=== PATIENT | female | born 2005 ===

== ENCOUNTER 2024-09-27 22:01 | Emergency (ER) | payer SELFPAY ==
[2024-09-27 22:02] VITALS: BP 156/88; PULSE 102; RESP 18; TEMP 36.6; O2SAT 100
--- OUTSIDE RECORDS SUMMARY | 2024-09-27 22:18 | XMS_ITS | Continuity of Care Document ---
Author Organization [facility] Address [address] [place] [address] Phone Care Team Providers Care Shuttle Route Vehicle Operator Name Role Phone Mai Rushing Unavailable Unavailable Allergies, Adverse Reactions, Alerts Substance Reaction Status Criticality No Known Allergies Active No Inform ation Medications Medication Instructions Dosage Effective Dates (start - stop) Status Comments famotidine 40 mg tablet take 1 tablet by oral route every day at bedtime 40 MG - Active ketorolac 10 mg tablet take 1 tablet by oral route every 6 hours as needed for up to 5 days total use as needed for Pain 10 MG - Active hyoscyamine 0.125 mg sublingual tablet as needed - Active citalopram 20 mg tablet take 1 1/2 tablets (30mg) by oral route every day - Active Adderall 10 mg tablet take 1 tablet by oral route every day before breakfast 10 MG - Active Jaimiess 0.15 mg-30 mcg (84)/10 mcg(7) tablets,3 month dose pack take 1 tablet by oral route every day 1.00 tablet - Active Procedures Procedure Date OFFICE [id number] BODY MASS INDEX DOCD SYST BP LT 130 MM HG DIAST BP 80-89 MM HG ECHO EXAM OF ABDOMEN, LIMITED (SINGLE OR TYREE, QUADRANT, FOLLOW-UP) C-REACTIVE PROTEIN (CRP) CBC, INC PLATELETS AND DIFFERENTIAL COMPREHEN METABOLIC PANEL CMP ROUTINE VENIPUNCTURE OFFICE [id number] BODY MASS INDEX DOCD SYST BP LT 130 MM HG DIAST BP 80-89 MM HG Advance Directives Directive Yes / No Effective Date File Name No Information Encounters Encounter Description Practice Location Reason(s) For Visit Diagnoses Date Provider Providers Copied on Encounter [facility], [address], [place], [place], [id number] , tel: [phone] [facility] No Information 4 Gilles Oneill. [address] [place] [address], [address], [id number] , [place]. tel: [phone] OFFICE [id number] [facility], [address], [place], [place], [id number] , tel: [phone] [facility] Follow Up of RUQ pain (chief complaint) Follow Up of Loose stools (chief complaint) Altered bowel habitsGastroesophagea l reflux disease without esophagitisRUQ abdominal pain 4 Gilles Oneill. [address] [place] [address], [address], [id number] , [place]. tel: [phone] Referring Provider: Higinio Erwin, [address] [place] [address] Office [facility] [address], [place], [address]. tel:[phone] [facility], [address], [place], [place], [address] , tel: [phone] [facility] RUQ abdominal pain 4 Gilles Oneill. [facility] [place] [facility], [address], [id number] , [place]. tel: [phone] [facility], [address], [place], [place], [address] , tel: [phone] [facility] No Information 4 Caterina Ureña. [address] , [place], [place], [address] , [place]. tel: [phone] Referring Provider: Mai Campoverde, [address], [address] . tel:[phone] OFFICE [id number] MP-MED [facility], [address], [place], [place], [id number] , tel:[phone] [facility] RUQ pain (chief complaint) RUQ pain Campoverde Mai. [address], [address], [id number] , [place]. tel:[phone] Referring Provider: Higinio Erwin, [address] [place] [address] [facility] [address], [place], [address]. tel:[phone] [facility], [address], [place], [place], [address] , tel:[phone] [facility] No Information Campoverde Mai. [address], [address], [id number] , . tel:[phone] Family History Family Member Type Diagnosis Age At Onset Father Problem Colon polyps Problem Family history of Diabetes m ellitus Paternal grandmother Problem Heart Disease Paternal grandfather Problem Colon polyps Payers Payer name Insurance type Covered alliance party ID Authordenisea catracho(s) [facility] [id number] Social History Type Description Quantity Date Captured Comments Alcohol Use Details Unknown Caffeine Use Details Unknown Tobacco Use Status No Information Smoking Status No Information Sex Female Sexual Orientation Straight or heterosexual Gender Identity Female Chief Complaint And Reason For Visit No Information Reason For Referral Reason For Referral No Information Plan Of Treatment Date Type Action Status Referral Ordered: HIDA scan with administration of cholecystokinin (CCK) and determination of gallbladder ejection fraction ordered Referral Ordered: US RUQ abdomen ordered History Of Present Illness Encounter Date Complaint History Of Prese nt Illness Comments: She is on Omeprazole 40mg 2-3 times per week. Takes Pepcid also intermittently. They both work and she takes these usually at night. US on 12/22/23 was WNL. HIDA was ordered but patient did not get this done. She has RUQ pain after a large meal up to 4 times per week. Lasts approximately an hour. Describes as squeezing, achy pain. Has mild nausea, no vomiting. Reports her diet consists of fried hash browns that made her nauseous. Had pasta salad and an apple and was fine. If she eats meat or eggs, she will have pain. Had EGD in 2019. Takes Hyoscyamine 1-2 times per week for spasms. Follow Up of Loose stools Comments: Report s has had loose stools since she has been approx 9. Has mild bloating and flatulence. No blood in her stool. Happens at night after dinner. No night time stools. Follow Up of RUQ pain RUQ pain Comments: Report s went to 1 month ago with RUQ pain. Can occur at night when sleeping. Eats fast food and has pain an hour after eating. Happens daily, all along her right side radiates into her back and shoulder. Nausea more than vomiting. Had diarrhea but now improved. No blood in her stool. Had EGD in 2019 for GERD symptoms. Doesn't take Pepcid but thinks she should because she has acid reflux constantly. Has belching. Functional Status Date Functional Assessmen t No Information Instructions Date Instruction Additional Infor celine Having loose stools 1-2 times per week. She has had irregular stools for the past 9 years. No blood in her stool. Negative duodenal biopsies for celiac. Labs WNL. Likely IBS. Check calprotectin, fecal fat. Continue Hyoscyamine as needed. Limit daily. Follow up in 3-4 months. Related to Altered bowel habits as above Related to Gastr oesophageal reflux disease without esophagitis US negative. Having intermittent discomfort in her RUQ. Was supposed to have HIDA scan but didn't have time due to work. Having intermittent achy pain that radiates across her epigastric area. Has a hx of GERD with EGD in 2019. Her discomfort sounds more like uncontrolled acid reflux than gallbladder. Start Famotidine 40mg at HS. Follow low acid diet and practice lifestyle modifications. Related to RUQ abdominal pain Disease prevention Reports a 1 month hx of right sided abdominal pain associated with nausea, mild loose stools, acid reflux. Occurs after eating and randomly day and night. Has a hx of acid reflux, and has been evaluated in 2019 with EGD. No imaging or labs done in UC, given reglan and hyoscyamine. Took short term with little relief. Consider biliary dyskinesia however also consider uncontrolled acid reflux. Will start with labs and imaging while we get records and trial PPI. Labs today. Schedule US of gallbladder. If negative consider HIDA scan. Start Omeprazole 40mg daily. Low fat, bland low acid diet. Records from [facility] for EGD/path from 2019. Follow up in 8 weeks. Related to RUQ pain Disease prevention Assessments Type Assessment Date No Information Patient Care Teams Name Effective Dates (start - stop) Status Members No Information
--- OUTSIDE RECORDS SUMMARY | 2024-09-27 22:18 | XMS_ITS | Continuity of Care Document ---
Author Organization [facility] Address [address] [place] [address] Phone Care Team Providers Care Welding Specialist Name Role Phone Kleber Del Rio MD Unavailable Unavailable Allergies, Adverse Reactions, Alerts Substance Reaction Status Criticality No Known Allergies Active No Inform ation Medications Medication Instructions Dosage Effective Dates (start - stop) Status Comments CONCERTA (unknown strength) Not Available - Active CITALOPRAM HBR (unknown strength) Not Available - Active Procedures Procedure Date OFFICE/OUTPATIENT VISIT EST OFFICE/OUTPATIENT VISIT EST OFFICE/OUTPATIENT VISIT EST POSTOP FOLLOW-UP VISIT OFFICE/OUTPATIENT VISIT EST OFFICE/OUTPATIENT VISIT NEW Advance Directives Directive Yes / No Effective Date File Name No Information Encounters Encounter Description Practice Location Reason(s) For Visit Diagnoses Date Provider Providers Copied on Encounter OFFICE/OUTPAT IENT VISIT EST [facility] , [address], [place], [address], [place] tel:[phone] [facility] Unspecified dislocation of left patella, subsequent encounter 9 Eliane Shahid. [address], [place], [place], [id number]. tel:[phone] OFFICE/OUTPAT IENT VISIT EST [facility] , [address], [place], [address], [place] tel:[phone] [facility] Unspecified dislocation of left patella, subsequent encounter 9 Eliane Shahid. [address], [place], [place], [address]. tel:[phone] OFFICE/OUTPAT IENT VISIT EST [facility] , [address] [address], [place], [address], [place] tel:[phone] [facility] Unspecified dislocation of left patella, subsequent encounter 9 Eliane Shahid. [address], [place], [place], [id number]. tel:[phone] [facility] , [address], [place], [address], [place] tel:[phone] [facility] Unspecified dislocation of left patella, subsequent encounter 8 Mj Cee. [address], [place], [place], [address]. tel:[phone] OFFICE/OUTPAT IENT VISIT EST [facility] , [address] [address], [place], [address], [place] tel:[phone] [facility] Dislocation of left patella, initial encounter 8 Eliane Shahid. [address], [place], [place], [address]. tel:[phone] OFFICE/OUTPAT IENT VISIT NEW [facility] , [address], [place], [address], [place] tel:[phone] [facility] Coccydynia 8 Racheal Shahid. [address], [place], [place], [address]. tel:[phone] Referring Provider: Higinio Lin [address], [place], [address]. tel:[phone] Family History Family Member Type Diagnosis Age At Onset Sister Problem (finding) attention deficit hyper activity disorder Father Problem (finding) hypertension Mother Problem (finding) hypertension Brother Problem (finding) attention deficit hyper activity disorder Mother Problem (finding) Heart Arrhythmia Payers Payer name Insurance type Covered constitution party ID Authoriza tion(s) [facility] Choice Plus E2 OT [id number] Social History Type Description Quantity Date Captured Comments Alcohol Use Details No Caffeine Use Details Unknown Tobacco Use Status Never smoked tobacco 2018 Smoking Status Never smoker Sex Female Chief Complaint And Reason For Visit No Information Reason For Referral Reason For Referral No Information Plan Of Treatment Date Type Action Status Referral Ordered: RADEX KNE 3 VIEWS LT knee ordered History Of Present Illness Encounter Date Complaint History Of Prese nt Illness No Information Functional Status Date Functional Assessmen t No Information Instructions Date Instruction Additional Infor mation Report increased renan n, swelling, numbness or discoloration. Related to Unspecified dislocation of left patella, subsequent encounter Use as directed Related to Unspe cified dislocation of left patella, subsequent encounter Report increased renan n, swelling, numbness or discoloration. Related to Unspecified dislocation of left patella, subsequent encounter Take medication as directed. Rel ated to Unspecified dislocation of left patella, subsequent encounter Rest, ice and elevate. Related t o Dislocation of left patella, initial encounter Discussed treatment options Rela brittney to Dislocation of left patella, initial encounter Discussed treatment options Rela brittney to Coccydynia Assessments Type Assessment Date assessment Unspecified dislocation of left patella, subsequent encounter Patient Care Teams Name Effective Dates (start - stop) Status Members No Information
== END 2024-09-27 23:12 | disposition left against medical advice (07) ==
LOC: ANHED 22:17
DX: N93.9 Abnormal uterine and vaginal bleeding, unspecified (principal)
CPT/HCPCS: 99199

== ENCOUNTER 2024-12-11 22:38 | Emergency (ER) | payer OTHER, SELFPAY ==
--- NOTE | ~2024-12-11 | XR_ITS ---
XR chest 2V Ordering provider: Catarino Julian MD History: 19 years Female with . chest pain . Comparison: None. FINDINGS: MEDIASTINUM: The cardiac silhouette is not enlarged. LUNGS: No infiltrates, effusions or pneumothorax. OTHER: No free air under the diaphragm. IMPRESSION: No acute cardiopulmonary pathology. Reviewed, dictated and finalized at location A.
--- NOTE | 2024-12-11 22:43 | ECG_ITS ---
Test Date: 2024-12-11 22:47:09 Measurements Intervals [place] Rate: 82 P: 26 CT: 143 QRS: 68 QRSD: 98 T: -14 QT: 364 QTc: 427 Interpretive Statements SINUS RHYTHM INCOMPLETE RIGHT BUNDLE BRANCH BLOCK [90+ ms QRS DURATION, TERMINAL R IN V1/V2, 40+ ms S IN I/aVL/V4/V5/V6] MODERATE T-WAVE ABNORMALITY, CONSIDER ANTERIOR ISCHEMIA [-0.1+ mV T-WAVE IN V3/V4] No previous ECG available for comparison Electronically Signed On 12-13-2024 18:54:42 CDT by Jasbir Garcia
[2024-12-11 22:55] VITALS: BP 134/96; PULSE 88; RESP 18; TEMP 36.6; O2SAT 100
[2024-12-11 23:01] LABS: Basophils Absolute Auto 0.1 K/mm3 (0.0-0.1); Basophils Percent Auto 0.6 % (0.2-1.2); Eosinophils Absolute Auto 0.2 K/mm3 (0-0.3); Eosinophils Percent Auto 2.4 % (0-4.4); Hematocrit 45.3 % (37.0-47.0); Hemoglobin 14.6 g/dL (12.0-15.0); Immature Granulocyte Absolute 0.01 K/mm3 (0.00-0.031); Immature Granulocyte Percent A 0.1 % (0-0.5); Lymphocytes Percent Auto 37.6 % (18.3-44.2); Mean Corpuscular HGB Conc 32.2 g/dl (32-36); Mean Corpuscular Hemoglobin 28.8 pg (26-34); Mean Corpuscular Volume 89.3 fl (80-100); Mean Platelet Volume 9.2 fl (7.4-10.4); Monocytes Absolute Auto 0.6 K/mm3 (0.1-0.6); Monocytes Percent Auto 6.6 % (2.6-8.5); Neutrophils Absolute Auto 4.6 K/mm3 (1.3-6.7); Neutrophils Percent Auto 52.7 % (45.5-73.1); Platelet Count Result 471 k/mm3 (150-375); Red Blood Count 5.07 M/mm3 (4.2-5.4); Red Cell Distribution Width 13.2 % (11.5-14.5); White Blood Count 8.8 K/mm3 (4.5-10.0)
[2024-12-11 23:15] LABS: Partial Thromboplastin Time 30.7 Seconds (22.3-36.8); Prothrombin Time 13.1 Seconds (11.1-14.7)
[2024-12-11 23:29] LABS: Alanine Aminotransferase 82 U/L (6-35); Albumin Level 5.3 g/dL (3.5-5.1); Alkaline Phosphatase 87 U/L (38-126); Anion Gap 16 mmol/L (4-12); Aspartate Amino Transferase 48 U/L (14-36); Bilirubin,Total 0.5 mg/dL (0.2-1.3); Blood Urea Nitrogen 8 mg/dL (7-17); Calcium 9.9 mg/dL (8.4-10.2); Carbon Dioxide 23 mmol/L (22-30); Chloride 103 mmol/L (98-107); Estimated CRCL calculation 135 ml/min; Estimated Glomerular Filt Rate > 60; Glucose 100 mg/dL (65-110); Lipase 120 U/L (23-300); Potassium 3.9 mmol/L (3.4-5.0); Sodium 142 mmol/L (137-145)
[2024-12-11 23:37] VITALS: BP 122/76; PULSE 77; RESP 13; O2SAT 98
[2024-12-11 23:39] VITALS: O2SAT 100
[2024-12-11 23:39] LABS: Troponin I < 0.012 ng/mL (0.000-0.034)
--- NOTE | 2024-12-11 23:48 | ED.CHESTPAIN ---
HPI - Chest Pain General Chief Complaint: Chest Pain Stated Complaint: chest pain 2 hrs left sided back and arm Time Seen by Provider: 12/11/24 23:34 Source: patient Mode of arrival: ambulatory Limitations: no limitations History of Present Illness HPI narrative: This is a 19-year-old female that presents to the emergency department for left-sided chest pain. Ongoing over the last couple of hours. The pain is sharp in nature, worse with breathing. Radiates to her back. Denies shortness of breath. Related Data Allergies Allergy/AdvReac Type Severity Reaction Status Date / Time No Known Allergies Allergy Verified 12/12/24 00:29 Review of Systems Review of Systems: CONSTITUTIONAL: Denies fever CARDIOVASCULAR: Reports chest pain RESPIRATORY: Denies dyspnea. GASTROINTESTINAL: Denies abdominal pain, nausea, vomiting All systems reviewed & are unremarkable except as noted in HPI and below PMFSH Past Medical History Medical History (Updated 12/12/24 @ 01:18 by Sari Mares PA-C) History of anxiety Social History Social History (Updated 12/12/24 @ 01:18 by Sari Mares PA-C) Smoking status: Current some day smoker Tobacco type: e-cigarettes/vaping Exam Narrative: GENERAL: Well-appearing, well-nourished, and in no acute distress. HEAD: Normocephalic, atraumatic. EYES: EOMI. CHEST: Clear to auscultation. No respiratory distress. No wheezes rales or rhonchi HEART: Regular rate and rhythm. No murmur heard. Normal peripheral pulses. EXTREMITIES: Normal range of motion. No edema. SKIN: Warm, dry, no rash. NEURO: No focal deficits. Alert and oriented x3. PSYCH: Normal mood and affect Course Course Emergency Course: Patient updated on her workup and agrees with plan of care Vital Signs Vital signs: Vital Signs Temperature 97.8 F 12/11/24 22:55 Pulse Rate 88 12/11/24 22:55 Respiratory Rate 18 12/11/24 22:55 Blood Pressure 134/96 H 12/11/24 22:55 Pulse Oximetry 100 12/11/24 22:55 Oxygen Delivery Room Air 12/11/24 22:55 Temperature 97.8 F 12/11/24 22:55 Pulse Rate 77 12/11/24 23:37 Respiratory Rate 13 12/11/24 23:37 Blood Pressure 122/76 12/11/24 23:37 Pulse Oximetry 100 12/11/24 23:39 Oxygen Delivery Room Air 12/11/24 23:39 MDM - Chest Pain MDM Narrative Medical decision making narrative: Patient presents the emergency department for chest pain. Her vitals are stable. CBC without concerning findings. Metabolic panel with mild transaminitis. Lipase is normal. EKG without acute ST changes and her baseline troponin is negative. D-dimer is not elevated. Her heart score is 1. Chest x-ray without acute cardiopulmonary abnormality. Patient updated on her workup agrees with plan of care. She is to follow up with primary provider. She was given warnings to return the ER Differential Diagnosis Differential diagnosis: Likely stable angina, atypical chest pain, costochondritis, chest pain and other (Muscle strain, anxiety, pneumonia) Lab Data Attestation: I reviewed the patient's lab results. 12/11/24 22:53 12/11/24 22:53 Labs: Lab Results 12/11/24 Range/Units 22:53 WBC 8.8 (4.5-10.0) K/mm3 RBC 5.07 (4.2-5.4) M/mm3 Hgb 14.6 (12.0-15.0) g/dL Hct 45.3 (37.0-47.0) % MCV 89.3 (80-100) fl MCH 28.8 (26-34) pg MCHC 32.2 (32-36) g/dl RDW 13.2 (11.5-14.5) % Plt Count 471 H (150-375) k/mm3 MPV 9.2 (7.4-10.4) fl Immature Gran % (Auto) 0.1 (0-0.5) % Neut % (Auto) 52.7 (45.5-73.1) % Lymph % (Auto) 37.6 (18.3-44.2) % Norton % (Auto) 6.6 (2.6-8.5) % Eos % (Auto) 2.4 (0-4.4) % Baso % (Auto) 0.6 (0.2-1.2) % Lymph # (Auto) 3.30 H (0.9-3.2) K/mm3 Norton # (Auto) 0.6 (0.1-0.6) K/mm3 Eos # (Auto) 0.2 (0-0.3) K/mm3 Baso # (Auto) 0.1 (0.0-0.1) K/mm3 Abs Immat Gran (auto) 0.01 (0.00-0.031) K/mm3 Absolute Neuts (auto) 4.6 (1.3-6.7) K/mm3 Absolute Nucleated RBC 0.000 (0.0-0.012) K/mm3 Nucleated RBC % 0.0 (0.0-0.2) % PT 13.1 (11.1-14.7) Seconds INR 1.0 APTT 30.7 (22.3-36.8) Seconds D-Dimer Pending Sodium 142 (137-145) mmol/L Potassium 3.9 (3.4-5.0) mmol/L Chloride 103 (98-107) mmol/L Carbon Dioxide 23 (22-30) mmol/L Anion Gap 16 H (4-12) mmol/L BUN 8 (7-17) mg/dL Creatinine 0.60 L (0.7-1.0) mg/dL Estim Creat Clear Calc 135 ml/min Estimated GFR > 60 (59 - ) Glucose 100 (65-110) mg/dL Calcium 9.9 (8.4-10.2) mg/dL Total Bilirubin 0.5 (0.2-1.3) mg/dL AST 48 H (14-36) U/L ALT 82 H (6-35) U/L Alkaline Phosphatase 87 (38-126) U/L Troponin I < 0.012 (0.000-0.034) ng/mL Total Protein 9.0 H (6.3-8.2) g/dL Albumin 5.3 H (3.5-5.1) g/dL Lipase 120 (23-300) U/L Imaging Data Radiologist's impression: ITS Impressions Chest X-Ray 12/11/24 22:59 IMPRESSION: No acute cardiopulmonary pathology. ECG Data EKG #1: ECG completion date: 12/11/24 EKG Interpretation: normal rate, sinus rhythm, no ST changes and normal QT Critical Care Time Critical Care Time Critical Care Time: No Discharge Plan Discharge Clinical Impression: Atypical chest pain Patient Disposition: Home Condition: Stable Instructions: Chest Wall Pain (ED) Additional Instructions: Return to the emergency department if you experience fever, worsening chest pain, shortness of breath, abdominal pain with nausea and vomiting, or any other symptoms that are concerning to you. Rest. Heat and/or ice to the area. Tylenol or Ibuprofen as needed for pain Your liver enzymes were mildly elevated, otherwise the rest of your blood work and imaging were reassuring Follow up with your primary care doctor Patient Language: Cook Islander Follow-up/Referrals: PHYSICIAN NOT ON STAFF,NONSTAFF [Primary Care Provider] - Quality HEART score for chest pain patients History: slightly suspicious ECG: normal Age: < or = to 45 years Risk factors: 1 or 2 risk factors Troponin: < or = to 1x normal limit Heart score: 1
[2024-12-11 23:59] LABS: D Dimer 0.32 ug/mL (<0.48)
[2024-12-12 00:01] VITALS: BP 122/83; PULSE 87; RESP 20; O2SAT 100
--- OUTSIDE RECORDS SUMMARY | 2024-12-12 00:01 | XMS_ITS | Referral Summary ---
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 School avoidance 03/18/2015 MAIKEL (generalized anxiety disorder) 03/18/2015 Attention deficit hyperactiv ity disorder (ADHD), combined type 03/18/2015 Immunizations Immunization Administration Dates Next Due DTaP 02/04/2010, 6,04/15/2005,02/09,2004 H1N1 Inj 08/22/2009 HPV9 01/17/2019,03/12/2018 Hep A, Adult 10/18/2007,10/09/2006 Hep B Vaccine 05/04/2006,02/09/2005,2004 HiB 05/04/2006,02/09/2005,2004 IPV 01/29/2009, 5,02/09/2005,12/08 Influenza LAIV (Nasal) 05/10/2012,2010,07/17/2010,05/18 Influenza, Live, Intranasal, Quadrivalent 05/15/2014,06/03/2013 Influenza, Quadrivalent, Spl it, Preservative Free, Intramuscular 07/08/2022,06/16/2021,09/15/2019,06/14,06/11/2015 Influenza, Trivalent, IM (MDV) 07/04/2006,2004,05/27/2005 Influenza, Unspecified 09/15/2019 MMR 02/04/2010,10/11/2005 Meningococcal B, OMV (Bexsero) 03/21/2023,2022 Meningococcal Conjugate (Menveo) 01/28/2016 Meningococcal MCV4P (Menactra) 01/30/2021 Pfizer SARS-CoV-2 Monovalent Vaccination (12+ Yrs) PURPLE 12/24/2020,12/03/2020 Pneumococcal Conjugate 7-Valent 05/04/20,04/15/2005,02/09/2005,12/08 Tdap 01/30/2021,01/28/2016 Varicella 01/29/2009,10/11/2005 Social History Tobacco Use Types Packs/Day Years Used Date Smoking Tobacco: Never Assessed PHQ-2 Answer Date Recorded PHQ-2 Total Score 1 02/16/2023 Comments Unknown Sex and Gender Information Value Date Recorded Sex Assigned at Not on file Legal Sex Female 3:11 PM CDT Gender Identity Not on file Sexual Orientation Not on file Last Filed Vital Signs Vital Sign Reading Time Taken Comments Blood Pressure 121/87 02/16/2023 8:30 AM CDT Pulse 86 02/16/2023 8:30 AM CDT Temperature - - Respiratory Rate - - Oxygen Saturation - - Inhaled Oxygen Concentration - - Weight 90.6 kg (199 lb 12.8 oz) 02/16/2023 8:30 AM CDT Height 166.1 cm (5' 5.4 ) 02/16/2023 8:30 AM CDT Body Mass Index 32.84 02/16/2023 8:30 AM CDT Plan of Treatment Not on file Insurance [facility] CHOICE [employer] [place] [id number] [facility] [employer] [place] [id number]
--- OUTSIDE RECORDS SUMMARY | 2024-12-12 00:01 | XMS_ITS | Clinical Summary ---
Author Organization CECY LIEBERMAN [facility] Address [address] [facility] [place] [address] Care Team Providers Care Supportability Engineer Name Role Phone Unavailable Primary Care Provider [...] Conjugate 7-Valent 05/04/20,04/15/2005,02/09/2005,12/08 Tdap 01/30/2021,01/28/2016 Varicella 01/29/2009,10/11/2005 Surgical History Surgery Date Site/Laterality Comments NO PAST SURGERIES Medical History Medical History Date Comments ADHD (attention deficit hyperactivity disorder) Anxiety Family History Medical History Relation Name Comments No Known Problems Brother JORGE ALBERTO No Known Problems Father MATEO No Known Problems Mother YOLANDA No Known Problems Sister SINCERE Relation Name Status Comments Brother JORGE ALBERTO Alive Father MATEO Alive Mother YOLANDA Alive Sister SINCERE Alive Social History Tobacco Use Types Packs/Day Years Used Date Smoking Tobacco: Never Assessed PHQ-2 Answer Date Recorded PHQ-2 Total Score 1 02/16/2023 Comments Unknown Sex and Gender Information Value Date Recorded Sex Assigned at Not on file Legal Sex Female 3:11 PM CDT Gender Identity Not on file Sexual Orientation Not on file Obstetrics History Last Filed Vital Signs Vital Sign Reading [...] 02/16/2023 8:30 AM CDT Plan of Treatment Health Maintenance Due Date Last Done Comments Hepatitis C Screening 2004 Depression Screening 02/17/2024 02/16/2023, 02/15/2022, 01/30/2021, Additional history exists Regular Well Visit/Exam 18-64 02/17/2024 02/16/2023 Covid-19 Vaccine (4 - 2023-2 5 season) 2024 07/08/2022, 12/24/2020, 12/03/2020 Influenza Vaccine (Season Ended) 2025 07/08/2022, 06/16/2021, 09/15/2019, Additional history exists DTaP/Tdap/Td Vaccine (8 - Td or Tdap) 01/30/2031 01/30/2021, 01/28/2016, 02/04/2010, Additional history exists Hepatitis B Screening Completed 05/04/2006 , 02/09/2005, 2004 Pneumococcal vaccine <65 Completed 006, 04/15/2005, 02/09/2005, Additional history exists Varicella Vaccines Completed 01/29/2009, 10/11/2005 HPV Vaccines Completed 01/17/2019, 03/12/2018 Meningococcal Vaccine Completed 01/30/2021, 016 Meningococcal B Vaccine Completed 03/21/2023, 02/16 Insurance [place]A HAMILTON [id number] [facility] CHOICE PLUS [place] [id number] [facility] CHOICE PLUS [place] [phone]
--- OUTSIDE RECORDS SUMMARY | 2024-12-12 00:01 | XMS_ITS | Clinical Summary ---
Author Organization [facility] Address [address] [place] [address] Care Team Providers Care Brazer Resistance Name Role Phone None, Provider Primary Care Provider Unavaila ble Allergies No known active allergies Encounters Date Type Department Care Team Description 12/09/2024 1:03 AM CDT - 12/09/2024 3:20 AM CDT Emergency [facility] [place] [address] Gab Hamilton MD Shortness Of Breath Discharge Disposition: Home or Self Care (Routine Discharge) 12/09/2024 Travel from Last 3 Months Social History Tobacco Use Types Packs/Day Years Used Date Smoking Tobacco: Never Assessed Comments Unknown Sex and Gender Information Value Date Recorded Sex Assigned at Female 12/09/2024 1:05 AM CDT Legal Sex Female 12:54 AM CDT Gender Identity Not on file Sexual Orientation Not on file Last Filed Vital Signs Vital Sign Reading Time Taken Comments Blood Pressure 125/83 12/09/2024 1:50 AM CDT Pulse 68 12/09/2024 1:50 AM CDT Temperature 36.9 C (98.4 F) 12/09/2024 1:50 AM CDT Respiratory Rate 18 12/09/2024 1:50 AM CDT Oxygen Saturation 99% 12/09/2024 1:50 AM CDT Inhaled Oxygen Concentration - - Weight 78 kg (172 lb) 12/09/2024 12:59 AM CDT Height 167.6 cm (5' 6 ) 12/09/2024 12:59 AM CDT Body Mass Index 27.76 12/09/2024 12:59 AM CDT Plan of Treatment Health Maintenance Due Date Last Done Comments Annual Physical 2007 Hepatitis C 2022 COVID-19 Vaccine ( season) 2024 12/24/2020, 12/03/2020 DTaP, Tdap and Td Vaccines (8 - Td or Tdap) 01/30/2031 01/30/2021, 01/28/2016, 02/04/2010, Additional history exists Hepatitis B Vaccines Completed 05/04/2006, 02/09/2005, 2004 Pneumococcal Vaccine: Pediatrics (0 to 5 Years) and At-Risk Patients (6 to 49 Years) Aged Out 05/04/2006, 04/15/2005, 02/09/2005, Additional history exists No longer eligible based on patient's age to complete this topic HPV Vaccines Completed 01/17/2019, 03/12/2018 Meningococcal Vaccine Completed 01/30/2021, 016 Meningococcal B Vaccine Completed 03/21/2023, 02/16 RSV Immunizations Under 20 Months Aged Out No longer eligible based on patient's age to complete this topic Procedures Procedure Name Priority Date/Time Associated Diagnosis Comments HCG QUANT (SERUM)-CHORIONIC GONADOTROPIN STAT 12/09/2024 2:08 AM CDT TROPONIN, QUANT STAT 12/09/2024 2:08 AM CDT BASIC METABOLIC PANEL STAT 12/09/2024 2:08 AM CDT CBC W/DIFF AUTOMATED STAT 12/09/2024 2:08 AM CDT ECG 12-LEAD Routine 12/09/2024 2:00 AM CDT XR CHEST PORTABLE STAT 12/09/2024 1:5 7 AM CDT from Last 3 Months Results * BASIC METABOLIC PANEL (12/09/2024 2:08 AM CDT) GLUCOSE 91 70 - 99 MG/DL 12/09/2024 2:37 AM CDT [facility] BUN 8 7 - 18 MG/DL 12/09/2024 2:37 AM CDT [facility] CREATININE S/P/B 0.66 0.55 - 1.02 MG/DL 12/09/2024 2:37 AM CDT [facility] SODIUM S/P/B 138 136 - 145 MMOL/L 12/09/2024 2:37 AM CDT [facility] POTASSIUM S/P/B 3.8 3.5 - 5.1 MMOL/L 12/09/2024 2:37 AM CDT [facility] CHLORIDE S/P/B 107 97 - 115 MMOL/L 12/09/2024 2:37 AM CDT [facility] CO2 23.5 21 - 32 MMOL/L 12/09/2024 2:37 AM CDT [facility] CALCIUM S/P/B 8.9 8.5 - 10.1 MG/DL 12/09/2024 2:37 AM CDT [facility] ANION GAP 7.5 2 - 10 MMOL/L 12/09/2024 2:37 AM CDT [facility] BUN CREATININE RATIO 12.1 6 - 26 12/09/2024 2:37 AM T [facility] GFR ESTIMATE >90 >90 ML/MIN/1.7 3 M2 12/09/2024 2:37 AM T [facility] Comment: NOTE: eGFR is not calculated for patients <18 years of age or gender unknown. This is an estimated GFR calculation using the new CKD EPI creatinine equation without race and so does not require a correction factor for race. This estimated GFR should not be used for calculating drug doses. 12/09/2024 2:08 AM CDT Gab Hamilton MD LABORATORY Final Result [facility] [address] [place] [address], * Quantitative HCG (12/09/2024 2:08 AM CDT) [facility] HCG QUANTITATIVE <1 MIU/ML 12/10/19 2:37 AM CDT [facility] Comment: WEEKS OF REFERENCE RANGES Non- female < or = 2 0.2 - 1 5 - 50 1 - 2 50 - 500 2 - 3 100 - 5000 3 - 4 500 - 10,000 4 - 5 1000 - 50,000 5 - 6 10,000 - 100,000 6 - 8 15,000 - 200,000 2 - 3 MONTHS 10,000 - 100,000 12/09/2024 2:08 AM CDT Gab Hamilton MD LABORATORY Final Result [facility] [address] [place] [address], [place] [phone] * (ABNORMAL) CBC W/DIFF AUTOMATED (12/09/2024 2:08 AM CDT) [facility] WBC 9.61 4.5 - 13.0 x10'3/uL 12/09/2024 2:21 AM CDT [facility] RBC 4.54 4.20 - 5.40 x10'6/uL 12/09/2024 2:21 AM CDT [facility] HGB 13.2 12.0 - 16.0 G/DL 12/09/2024 2:21 AM CDT [facility] HCT 39.3 38.0 - 48.0 % 12/09/2024 2:21 AM CDT [facility] MCV 86.6 81.0 - 99.0 FL 12/09/2024 2:21 AM CDT [facility] MCH 29.1 27.0 - 31.0 PG 12/09/2024 2:21 AM CDT [facility] MCHC 33.6 32.0 - 36.0 G/DL 12/09/2024 2:21 AM CDT [facility] RDW 13.2 11.5 - 14.5 % 12/09/2024 2:21 AM CDT [facility] PLT 398 130 - 400 x10'3/uL 12/09/2024 2:21 AM CDT [facility] MPV 9.0(L) 9.3 - 12.2 FL 12/09/2024 2:21 AM CDT [facility] DIFFERENTIAL TYPE AUTOMATED DIFFERENTIAL 12/09/2024 2:21 AM CDT [facility] NEUTROPHILS % 56.9 % 12/09/2024 2:21 AM CDT [facility] LYMPHOCYTES % 29.7 % 12/09/2024 2:21 AM CDT [facility] MONOCYTES % 9.3 % 12/09/2024 2:21 AM CDT [facility] EOSINOPHILS 3.3 % 12/09/2024 2:21 AM CDT [facility] BASOPHILS 0.6 % 12/09/2024 2:21 AM CDT [facility] IMMATURE GRANS % 0.2 % 12/10/19 2:21 AM CDT [facility] ABS. NEUTROPHILS 5.47 1.80 - 8.00 x10'3/uL 12/09/2024 2:21 AM CDT [facility] ABS. LYMPHOCYTES 2.85 1.20 - 5.20 x10'3/uL 12/09/2024 2:21 AM CDT [facility] ABS. MONOCYTES 0.89(H) 0.24 - 0.86 x10'3/uL 12/09/2024 2:21 AM CDT [facility] ABS. EOSINOPHILS 0.32 0.04 - 0.36 x10'3/uL 12/09/2024 2:21 AM CDT [facility] ABS. BASOPHILS 0.06 0.01 - 0.08 x10'3/uL 12/09/2024 2:21 AM CDT [facility] ABS. IMMATURE GRANULOCYTES 0.02 0.00 - 0.49 x10'3/uL 12/09/2024 2:21 AM CDT [facility] 12/09/2024 2:08 AM CDT us Gab Hamilton MD LABORATORY Final Result [facility] [address] [place] [address], [place] [phone] * TROPONIN, QUANT (12/09/2024 2:08 AM CDT) TROPONIN I HIGH SENSITIVITY 3 <54 ng/L 12/09/2024 2:37 AM CDT [facility] Comment: HIGH DOSES OF BIOTIN, TROPONIN-SPECIFIC AUTOANTIBODIES, AND ANTIBODY THERAPY CONTAINING HAMA MAY INTERFERE WITH THIS TEST RESULT. CORRELATION TO CLINICAL HISTORY AND PRESENTATION RECOMMENDED. 12/09/2024 2:0 8 AM CDT us Gab Hamilton MD LABORATORY Final Result [facility] [address] [place] [address], [place] [phone] * ECG 12 lead (12/09/2024 2:00 AM CDT) 12/09/2024 2:00 AM CDT Narrative [facility] - 12/09/2024 9:[address] [facility] [address] [place] [address] Test Date: 2024-12-09 Pat Name: JOHNNA HERNANDEZ Department: 41 Room: [place] [address] Gender: Female Dock Associate: Jono : 2005 Requested By: GAB HAMILTON Order Number: [id number] Reading MD: Jonathan Painter Measurements Intervals [place] Rate: 62 P: 28 FL: 164 QRS: 52 QRSD: 105 T: 11 QT: 410 QTc: 417 Interpretive Statements SINUS RHYTHM WITH SINUS ARRHYTHMIA INCOMPLETE RIGHT BUNDLE BRANCH BLOCK [90+ ms QRS DURATION, TERMINAL R IN V1/V2, 40+ ms S IN I/aVL/V4/V5/V6] NONSPECIFIC T-WAVE ABNORMALITY No previous ECG available for comparison Procedure Note Jonathan Painter MD - 12/09/2024 [facility] [address] [place] [address] Test Date: 2024-12-09 Pat Name: JOHNNA HERNANDEZ Department: 41 Room: [id number] Gender: Female Dock Associate: Jono : 2005 Requested By: GAB HAMILTON Order Number: [id number] Reading MD: Jonathan Painter Measurements Intervals [place] Rate: 62 P: 28 FL: 164 QRS: 52 QRSD: 105 T: 11 QT: 410 QTc: 417 Interpretive Statements SINUS RHYTHM WITH SINUS ARRHYTHMIA INCOMPLETE RIGHT BUNDLE BRANCH BLOCK [90+ ms QRS DURATION, TERMINAL R IN V1/V2, 40+ ms S IN I/aVL/V4/V5/V6] NONSPECIFIC T-WAVE ABNORMALITY No previous ECG available for comparison us Gab Hamilton MD ECG ORDERABLES Final Result [facility] * XR CHEST PORTABLE (12/09/2024 1:57 AM CDT) Anatomical Region Laterality Modality Chest Radiographic Kimberly ging 12/09/2024 1:59 AM CDT Impressions 12/09/2024 2:03 AM CDT IMPRESSION: No radiographic evidence of an acute cardiopulmonary abnormality. Referred By: Interpreted By: Jerome Burnham MD, 12/09/2024 1:59 AM Narrative 12/09/2024 2:03 AM CDT [place] [address] EXAMINATION: XR CHEST PORTABLE, 12/09/2024 1:59 AM TECHNIQUE: Upright AP portable radiograph of the chest HISTORY: Dyspnea minimally prolapsed 2 weeks, thought it was related to an anxiety attack but it has lasted about 4 hours tonight. O2 level 100% RA. Reports some wheezing earlier tonight when it started.States she has been using nicotine vapes for the last 6 years. COMPARISON: None available FINDINGS: Heart size is normal. Pulmonary vascular pattern appears within normal limits. No focal pulmonary consolidation. No pleural effusion. No pneumothorax. Procedure Note Jerome Burnham MD - 12/09/[address] [address] EXAMINATION: XR CHEST PORTABLE, 12/09/2024 1:59 AM TECHNIQUE: Upright AP portable radiograph of the chest HISTORY: Dyspnea minimally prolapsed 2 weeks, thought it was related to ananxiety attack but it has lasted about 4 hours tonight. O2 level 100% RA.Reports some wheezing earlier tonight when it started.States she has beenusing nicotine vapes for the last 6 years. COMPARISON: None available FINDINGS: Heart size is normal. Pulmonary vascular pattern appears withinnormal limits. No focal pulmonary consolidation. No pleural effusion.No pneumothorax. IMPRESSION: No radiographic evidence of an acute cardiopulmonary abnormality. Referred By: Interpreted By: Jerome Burnham MD, 12/09/2024 1:59 AM Gab Hamilton MD GENERAL IMAGING Final Result from Last 3 [place] [phone] [facility] [place] [address] Care Teams Brazer Resistance Relationship Specialty Start Date End Date None, Provider, PCP - General UNKNOWN PHYSICIAN SPECIALTY 12/09/24
[2024-12-12] MEDS: ACETAMINOPHEN 500 MG TABLET 1000 MG PO (00:30)
[2024-12-12 01:01] VITALS: BP 128/73; PULSE 70; RESP 14; O2SAT 100
== END 2024-12-12 01:40 | disposition home or self-care (01) ==
PROVIDERS: Student in an Organized Health Care Education/Training Program; Emergency Provider Physician Assistant
DX: R07.89 Other chest pain (principal); F41.9 Anxiety disorder, unspecified; F17.290 Nicotine dependence, other tobacco product, uncomplicated; I45.10 Unspecified right bundle-branch block; R94.31 Abnormal electrocardiogram [ECG] [EKG]
CPT/HCPCS: 36415; 71046; 80053; 83690; 84484; 85025; 85380; 85610; 85730; 93005; 99284; A9270

== ENCOUNTER 2025-01-25 01:34 | Emergency (ER) | payer OTHER, SELFPAY ==
--- OUTSIDE RECORDS SUMMARY | 2025-01-25 01:36 | XMS_ITS | Referral Summary ---
Author Organization CECY LIEBERMAN [facility] Address [address] [facility] [place] [address] Care Team Providers Care Service Attendant Name Role Phone Unavailable Primary Care Provider [...] 8:30 AM CDT Height 166.1 cm (5' 5.4) 02/16/2023 8:30 AM CDT Body Mass Index 32.84 02/16/2023 8:30 AM CDT Plan of Treatment Not on file Insurance [facility] CHOICE PLUS [place] [id number] [facility] CHOICE PLUS [place] [id number]
--- OUTSIDE RECORDS SUMMARY | 2025-01-25 01:36 | XMS_ITS | Clinical Summary ---
Author Organization CECY LIEBERMAN [facility] Address [address] [facility] [place] [place] [address] Care Team Providers Care Steel Sash Erector Name Role Phone Unavailable Primary Care Provider [...] Problems Father MATEO No Known Problems Mother YOLANAD No Known Problems Sister SINCERE Relation Name [...] Vaccine Completed 03/21/2023, 02/16 Insurance [place] H[place]TON [id number] [facility] CHOICE PL[facility]O Address[facility] [id number] [place] [address] [place] [phone] [facility]/PPO Address: [facility] [address] [place] [address] [place] [phone]
--- OUTSIDE RECORDS SUMMARY | 2025-01-25 01:36 | XMS_ITS | Continuity of Care Document ---
Author Organization [facility] Address [address] [place] [address] Phone Care Team Providers Care Agricultural Inspector Name Role Phone Kleber Del Rio MD Unavailable Unavailable Allergies, Adverse Reactions, Alerts Substance Reaction Status Criticality No Known Allergies Active No Inform ation Medications Medication Instructions Dosage Effective Dates (start - stop) Status Comments CITALOPRAM HBR (unknown strength) Not Available - Active CONCERTA (unknown strength) Not Available - Active Procedures Procedure Date OFFICE/OUTPATIENT VISIT EST OFFICE/OUTPATIENT VISIT EST OFFICE/OUTPATIENT VISIT EST POSTOP FOLLOW-UP VISIT OFFICE/OUTPATIENT VISIT EST OFFICE/OUTPATIENT VISIT NEW Advance Directives Directive Yes / No Effective Date File Name No Information Encounters Encounter Description Practice Location Reason(s) For Visit Diagnoses Date Provider Providers Copied on Encounter OFFICE/OUTPAT IENT VISIT EST [facility] , [address], [place], [address], [place] tel:[phone] [facility] Unspecified dislocation of left patella, subsequent encounter 9 Eliane Shahid. [address], [place], [place], [address]. tel:[phone] OFFICE/OUTPAT IENT VISIT EST [facility] , [address], [place], [address], [place] tel:[phone] [facility] Unspecified dislocation of left patella, subsequent encounter 9 Eliane Shahid. [address], [place], [place], [address]. tel:[phone] OFFICE/OUTPAT IENT VISIT EST [facility] , [address] [address], [place], [address], [place] tel:[phone] [facility] Unspecified dislocation of left patella, subsequent encounter 9 Eliane Shahid. [address], [place], [place], [address]. tel:[phone] [facility] , [address] [facility] [address], [place], [address], [place] tel:[phone] [facility] Unspecified dislocation of left patella, subsequent encounter 8 Mj Cee. [address], [place], [place], [address]. tel:[phone] OFFICE/OUTPAT IENT VISIT EST [facility] , [address] [address], [place], [address], [place] tel:[phone] [facility] Dislocation of left patella, initial encounter 8 Eliane Shahid. [address], [place], [place], [address]. tel:[phone] OFFICE/OUTPAT IENT VISIT NEW [facility] , [address] [facility] [address], [place], [address], [place] tel:[phone] [facility] Coccydynia 8 Racheal Shahid. [address] [facility], [place], [place], [address]. tel:[phone] Referring Provider: Higinio Lin [address], [place], [address]. tel:[phone] Family History Family Member Type Diagnosis Age At Onset Sister Problem (finding) attention deficit hyper activity disorder Father Problem (finding) hypertension Mother Problem (finding) hypertension Brother Problem (finding) attention deficit hyper activity disorder Mother Problem (finding) Heart Arrhythmia Payers Payer name Insurance type Covered republican ID Authoriza tion(s) [facility] Choice Plus [id number] [id number] Social History Type Description Quantity Date Captured [...]
--- OUTSIDE RECORDS SUMMARY | 2025-01-25 01:36 | XMS_ITS | Continuity of Care Document ---
Author Organization [facility] Address [address] [place] [address] Phone Care Team Providers Care Agronomy Location Manager Name Role Phone Mai Rushing Unavailable Unavailable [...] tablet - Active Procedures Procedure Date OFFICE [id number] BODY MASS INDEX DOCD SYST BP LT 130 MM HG DIAST BP 80-89 MM HG ECHO EXAM OF ABDOMEN, LIMITED (SINGLE OR TYREE, QUADRANT, FOLLOW-UP) C-REACTIVE PROTEIN (CRP) CBC, INC PLATELETS AND DIFFERENTIAL COMPREHEN METABOLIC PANEL CMP ROUTINE VENIPUNCTURE OFFICE [id number]-MED BODY MASS INDEX DOCD SYST BP LT 130 MM HG DIAST BP 80-89 MM HG Advance Directives Directive Yes / No Effective Date File Name No Information Encounters Encounter Description Practice Location Reason(s) For Visit Diagnoses Date Provider Providers Copied on Encounter [facility], [address], [place], [place], [address] , tel: [phone] [facility] No Information 4 Gilles Oneill. [address] [place] [address], [address], [id number] , [place]. tel: [phone] OFFICE [facility], [address], [place], [place], [address] , tel: [phone] [facility] Follow Up of RUQ pain (chief complaint) Follow Up of Loose stools (chief complaint) Altered bowel habitsGastroesophagea l reflux disease without esophagitisRUQ abdominal pain 4 Gilles Oneill. [address] [place] [address], [address], [id number] , [place]. tel: [phone] Referring Provider: Higinio Erwin, [address] [place] [address] Office [facility] [address], [place], [address]. tel:[phone] [facility], [address], [place], [place], [address] , tel: [phone] [facility] RUQ abdominal pain 4 Gilles Oneill. [facility] [place] [address] [facility], [address], [id number] , [place]. tel: [phone] [facility], [address], [place], [place], [address] , tel: [phone] [facility] No Information 4 Caterina Ureña. [address] , [place], [place], [address] , [place]. tel: [phone] Referring Provider: Mai Campoverde, [address], [address] . tel:[phone] OFFICE [id number] MP-MED [facility], [address], [place], [place], [address] , tel:[phone] [facility] RUQ pain (chief complaint) RUQ pain Campoverde Mai. [address], [address], [id number] , [place]. tel:[phone] Referring Provider: Higinio Erwin, [address] [place] [address] [facility] [address], [place], [address]. tel:[phone] [facility], [address], [place], [place], [address] , tel:[phone] [facility] No Information Campoverde Mai. [address], [address], [id number] , . tel:[phone] Family History Family Member Type Diagnosis Age At Onset Father Problem Colon polyps Problem Family history of Diabetes m ellitus Paternal grandmother Problem Heart Disease Paternal grandfather Problem Colon polyps Payers Payer name Insurance type Covered green party ID Authordenisea catracho(s) [facility] [id number] Social History Type Description Quantity Date Captured [...] fat, bland low acid diet. Records from [facility] for EGD/path from 2019. Follow up in 8 weeks. Related to RUQ pain Disease prevention Assessments Type Assessment Date No Information Patient Care Teams Name Effective Dates (start - stop) Status Members No Information
--- OUTSIDE RECORDS SUMMARY | 2025-01-25 01:37 | XMS_ITS | Continuity of Care Document ---
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
[2025-01-25 01:47] VITALS: BP 134/86; PULSE 78; RESP 18; TEMP 36.7; O2SAT 100
--- OUTSIDE RECORDS SUMMARY | 2025-01-25 02:15 | XMS_ITS | Clinical Summary ---
Author Organization CECY LIEBERMAN [facility] Address [address] [facility] [place] [address] Care Team Providers Care Paste Thinner Name Role Phone Unavailable Primary Care Provider [...] Vaccine Completed 03/21/2023, 02/16 Insurance V[place]URA HAMILTON [id number] [facility] CHOICE PLUS [place] [id number] [facility] [address] [place] [phone]
--- OUTSIDE RECORDS SUMMARY | 2025-01-25 02:15 | XMS_ITS | Referral Summary ---
Author Organization CECY LIEBERMAN [facility] Address [address] [facility] [place] [address] Care Team Providers Care Correspondence Section Supervisor Name Role Phone Unavailable Primary Care Provider [...] Plan of Treatment Not on file Insurance [facility] CHOICE PLUS [place] [id number] [facility] CHOICE PLUS V[place] [phone]
--- OUTSIDE RECORDS SUMMARY | 2025-01-25 02:15 | XMS_ITS | Continuity of Care Document ---
Author Organization [facility] Address [address] [place] [address] Phone Care Team Providers Care Claims Adjuster Supervisor Name Role Phone Mai Rushing Unavailable Unavailable [...] tablet - Active Procedures Procedure Date OFFICE FEYIN-HST-NBEQDSOV BODY MASS INDEX DOCD SYST BP LT 130 MM HG DIAST BP 80-89 MM HG ECHO EXAM OF ABDOMEN, LIMITED (SINGLE OR TRYEE, QUADRANT, FOLLOW-UP) C-REACTIVE PROTEIN (CRP) CBC, INC PLATELETS AND DIFFERENTIAL COMPREHEN METABOLIC PANEL CMP ROUTINE VENIPUNCTURE OFFICE [id number] BODY MASS INDEX DOCD SYST BP LT 130 MM HG DIAST BP 80-89 MM HG Advance Directives Directive Yes / No Effective Date File Name No Information Encounters Encounter Description Practice Location Reason(s) For Visit Diagnoses Date Provider Providers Copied on Encounter [facility], [address], [place], [place], [id number] , tel: [phone] [facility] No Information 4 Gilles Oneill. [address] [place] [address], [address], [id number] , [place]. tel: [phone] OFFICE [id number]-XFM-DP [facility], [address], [place], [place], [address] , tel: [phone] [facility] Follow Up of RUQ pain (chief complaint) Follow Up of Loose stools (chief complaint) Altered bowel habitsGastroesophagea l reflux disease without esophagitisRUQ abdominal pain 4 Gilles Oneill. [address] [place] [address], [address], [id number] , [place]. tel: [phone] Referring Provider: Higinio Erwin, [address] [place] [address] Office [facility] [address], [place], [address]. tel:[phone] [employer] [facility], [address], [place], [place], [address] , tel: [phone] [facility] RUQ abdominal pain 4 Gilles Oneill. [facility] [place] [address] [facility], [address], [id number] , [place]. tel: [phone] [facility], [address], [place], [place], [address] , tel: [phone] [facility] No Information 4 Caterina Ureña. [address] , [place], [place], [address] , [place]. tel: [phone] Referring Provider: Mai Campoverde, [address], [address] . tel:[phone] OFFICE CFAOI-WAP[facility], [address], [place], [place], [address] , tel:[phone] [facility] RUQ pain (chief complaint) RUQ pain Campoverde Mai. [address], [address], [id number] , [place]. tel:[phone] Referring Provider: Higinio Erwin, [address] [place] [address] [facility] [address], [place], [address]. tel:[phone] [facility], [address], [place], [place], [address] , tel:[phone] [facility] No Information Campoverde Mai. [address], [address], [id number] , . tel:[phone] Family History Family Member Type Diagnosis Age At Onset Father Problem Colon polyps Problem Family history of Diabetes m ellitus Paternal grandmother Problem Heart Disease Paternal grandfather Problem Colon polyps Payers Payer name Insurance type Covered green party ID Authordenisea catracho(s) [facility] [id number] Social History Type Description Quantity Date Captured [...] fat, bland low acid diet. Records from [facility] for EGD/path from 2019. Follow up in 8 weeks. Related to RUQ pain Disease prevention Assessments Type Assessment Date No Information Patient Care Teams Name Effective Dates (start - stop) Status Members No Information
--- OUTSIDE RECORDS SUMMARY | 2025-01-25 02:16 | XMS_ITS | Data Portability ---
Author Organization [facility], [facility] Address [address] [place] [address] Assessment No assessment recorded. Plan of Treatment Reminders Order Date Submit Date Provider Last Modified By Organization Details Last Modified Time Details Appointments None recorded. Lab urinalysis , dipstick 2024 025 [email or web address] [facility] [address], [address], 14:10:21 culture, urine 2024 025 [employer] [facility], [address] [place], [address], 21:49:37 unlisted lab - sti increased risk panel 2024 025 [employer] [facility], [address] [place], [address], 5 21:49:37 Referral None recorded. Procedures None recorded. Surgeries None recorded. Imaging None recorded. Medication Orders None recorded. Patient TargetsNo targets recorded. Patient InstructionsNo instructions recorded. Reason for Referral None Reported. Results Created Date Observation Date Name Description Value Unit Range Abnormal Flag Note LastModifiedBy Organization Detail LastModifiedTime 11/06/1911/09/2024 STI INCRE ASED RISK PANEL chlamydia trachomatis RNA, tma, urogenital NOT DETECT ED normal Not Available [facility] [address], [place], [address], 11/09/2024 21:49:37 11/06/19 25 11/09/2024 STI INCRE ASED RISK PANEL neisseria gonorrhoeae RNA, tma, urogenital NOT DETECT ED normal Not Available [facility] [address], [address], 11/09/2024 21:49:37 11/06/19 25 11/09/2024 STI INCRE ASED RISK PANEL trichomonas vaginalis RNA, ql tma NOT DETECT ED normal Not Available [facility] [address] [place], [address], 11/09/2024 21:49:37 11/06/19 25 11/09/2024 STI INCRE ASED RISK PANEL mycoplasma genitalium, rrna, tma DETECT ED abnormal Not Available [facility] [address], [address], 11/09/2024 21:49:37 11/06/19 25 11/09/2024 STI INCRE ASED RISK PANEL assay details SEE NOTE normal REFER ENCE RANGE : NOT DETEC MARQUISE The kevyn tical perfo rmanc e suzanne cteri stics of T. vagin sandeep when testi ng male sampl es have been deter mined by [facility]. The modif icati ons have not been clear ed or appro steve by the FDA. This modif icati on has been valid ated pursu ant to the CLIA regul ation s and is used for clini nicolas purpo ses. For addit ional infor alexa kennedy e refer to https ://ed ucati on.qu estdi MiFis. com/f aq/FA Q154 https ://ed ucati on.qu estdi MiFis. com/f aq/Carroll jennings ma (Thes e links are being provi ded for infor kenyatta teresa/ arelis hurd purpo ses only. ) Not Available [employer] [address] [address] [place], [address], 11/09/2024 21:49:37 11/06/19 25 11/09/2024 CULTU RE, URINE , ROUTI NE culture, urine, routine SEE NOTE CULTU RE, URINE , ROUTI NE Micro Numbe r: [id number] Test Statu s: Final Speci men Sourc e: Urine Speci men Quali ty: Adequ ate Resul t: No Growt h Not Available [facility] [address], [place], [address], 11/09/2024 21:49:37 11/06/1911/05/2024 urina lysis , dipst ick Leukocytes Trace Not Available [facility] [address], [place], [address], 11/05/2024 14:07:35 11/06/1911/05/2024 urina lysis , dipst ick Nitrite negati ve Not Available [address], [place], [address], 11/05/2024 14:07:35 11/06/1911/05/2024 urina lysis , dipst ick Urobilinogen .2 Not Available [facility] [address], [place], [address], 11/05/2024 14:07:35 11/06/19 25 11/05/2024 urina lysis , dipst ick Protein Negati ve Not Available [address], [address], 11/05/2024 14:07:35 11/06/1911/05/2024 urina lysis , dipst ick pH 6.0 Not Available [address], [address], 11/05/2024 14:07:35 11/06/19 25 11/05/2024 urina lysis , dipst ick Blood Negati ve Not Available [facility] [address], [place], [address], 11/05/2024 14:07:35 11/06/1911/05/2024 urina lysis , dipst ick Specific [place] 1.030 Not Available [address], [place], [address], 11/05/2024 14:07:35 11/06/1911/05/2024 urina lysis , dipst ick Ketone Small Not Available [address], [place], [address], 11/05/2024 14:07:35 11/06/1911/05/2024 urina lysis , dipst ick Bilirubin Negati ve Not Available [address], [place], [address], 11/05/2024 14:07:35 11/06/1911/05/2024 urina lysis , dipst ick Glucose Negati ve Not Available [address], [place], [address], 11/05/2024 14:07:35 11/06/1911/05/2024 urina lysis , dipst ick Appearance Slight ly Cloudy Not Available [facility] [address], [place], [address], 11/05/2024 14:07:35 11/06/1911/05/2024 urina lysis , dipst ick Color Brown Not Available [facility] [address], [place], [address], 11/05/2024 14:07:35 Result Notes None recorded. Problems Name Problem SNOMED Code Status Onset Date Resolution Date Notes Provider Name and Address Organization Details Recorded Time Adult attention deficit hyperactivity disorder 986699316 Active 2024 Sandra Luong CNM [address] [place] [address], [address], [facility] [employer] 5 14:12:53 Intrauterine contraceptive device in situ 760405887 Active 2024 Sandra Luong CNM [address] [place] [address], [address], [facility] [employer] 5 14:13:04 Mixed anxiety and depressive disorder 620458315 Active 2024 Sandra Luong CNM [address] [place] [address], [address], [facility] 5 14:13:22 Irritable bowel syndrome 87674510 Active 2024 Sandra Luong CNM [address] [place] [address], [address], [facility] 5 14:14:42 Female pelvic inflammatory disease 821909742 Active 2024 Sandra Luong CNM [address] [place] [address], [address], [employer] [facility] IV 14:15:08 Problem Notes None recorded. Medical Equipment None Reported. Allergies No known drug allergies Medications Name Sig Start Date Stop Date Status Note LastModified by Organization Details LastModified Time doxycycline hyclate 100 mg capsule 11/05 completed Not Available Not Available Not Available fluconazole 150 mg tablet TAKE 1 TABLET BY MOUTH EVERY 72 HOURS active Not Available Not Available No t Available metronidazo le 0.75 % (37.5 mg/5 gram) vaginal gel INSERT 1 APPLICATO RFUL VAGINALLY DAILY AT BEDTIME FOR 5 DAYS 11/05 completed Not Available Not Available Not Available prednisone 20 mg tablet 11/05 completed Not Available Not Available Not Available dextroamphe tamine-amph etamine 10 mg tablet active Not Available Not Available No t Available moxifloxaci n 400 mg tablet TAKE 1 TABLET BY MOUTH EVERY DAY FOR 7 DAYS active Not Available Not Available No t Available metronidazo le 500 mg tablet 11/05 completed Not Available Not Available Not Available omeprazole 40 mg capsule,del ayed release TAKE 1 CAPSULE BY MOUTH EVERY DAY BEFORE A MEAL 11/05 completed Not Available Not Available Not Available ketorolac 10 mg tablet 11/05 completed Not Available Not Available Not Available amoxicillin 875 mg tablet TAKE 1 TABLET BY MOUTH EVERY 12 HOURS FOR 10 DAYS 11/05 completed Not Available Not Available Not Available citalopram 20 mg tablet TAKE 1 AND 1/2 TABLETS BY MOUTH DAILY 11/05 completed Not Available Not Available Not Available clotrimazol e-betametha sone 1 %-0.05 % topical cream APPLY TOPICALLY TO THE AFFECTED AREA TWICE DAILY FOR 7 DAYS 11/05 completed Not Available Not Available Not Available hyoscyamine 0.125 mg sublingual tablet active Not Available Not Available Not Available fluoxetine 10 mg capsule active Not Available Not Available Not Available hydroxyzine HCl 25 mg tablet active Not Available Not Available Not Available levofloxaci n 500 mg tablet 11/05 completed Not Available Not Available Not Available ondansetron 4 mg disintegrat ing tablet DISSOLVE 1 TABLET BY MOUTH EVERY 8 HOURS NEEDED FOR NAUSEA active Not Available Not Available No t Available cefdinir 300 mg capsule TAKE 1 CAPSULE BY MOUTH EVERY 12 HOURS FOR 10 DAYS 11/05 completed Not Available Not Available Not Available doxycycline hyclate 100 mg tablet TAKE 1 TABLET BY MOUTH TWICE DAILY FOR 7 DAYS active Not Available Not Available No t Available metoclopram jamilah 10 mg tablet 11/05 completed Not Available Not Available Not Available amoxicillin 875 mg-potassiu m clavulanate 125 mg tablet TAKE 1 TABLET BY MOUTH EVERY 12 HOURS FOR 10 DAYS 11/05 completed Not Available Not Available Not Available nitrofurant oin monohydrate /macrocryst als 100 mg capsule 11/05 completed Not Available Not Available Not Available Vitals Date Recorded Body height Body mass index (BMI) Body mass index (BMI) [Percentile] Per age and sex Body weight Systolic blood pressure Diastolic blood pressure Provider Name and Address Organization Details Last Updated DateTime 167.64 cm 28.3 kg/m2 90 % 31480.1 g 100 mm[Hg] 60 mm[Hg] Ayden Kessler [employer] IV 13:48:48 Social History Question Answer Notes LastModified by Organizat ion Details LastModified Time Tobacco Smoking Status Never Smoker Ayden Kessler null, [employer] [facility] 11/05/2024 13:46:51 Are You Blind Or Do You Have Difficulty Seeing? No Information not available 11/05/2024 Are You Deaf Or Do You Have Serious Difficulty Hearing? No Information not available 11/05/2024 What Type Of Diet Are You Following? REGULAR Information not available 11/05/2024 How Many Children Do You Have? 0 Information not available 11/05/2024 What Is Your Relationship Status? Single Information not available 11/05/2024 Are You Sexually Active? Yes Information not available 11/05/2024 Sex: Female Functional Status Question Answer Note LastModified by Organizat ion Details LastModified Time Do you use any illicit or recreational drugs? No Information not available 11/05/2024 What is your level of alcohol consumption? None Information not available 11/05/2024 What is your exercise level? Occasional Information not available 11/05/2024 Mental Status None recorded. Family History Nothing Reported Notes:mom had high B/P and d iabetic runs in the family Medical History Condition Response Other Cancer N High Blood Pressure N Colon Cancer N Cytomegalovirus N Hyperthyroidism N MRSA N Breast Cancer N Herpes (HSV) N Blood Transfusion N Lung Cancer N Depression N Hypothyroidism N Incontinence N Panic Attacks N Neurological Disorder N Deep Vein Thrombosis N Anxiety Disorder N Autoimmune disease N Arthritis N Tuberculosis/Positive PPD N Shingles N Polycystic Ovarian Syndrome N Infertility N Cervical Cancer N Hematuria N Chlamydia N Stroke N Varicosities N Seasonal allergies N Crohn's Disease N Alzheimer's/Dementia N COPD/Emphysema N Endometriosis N HPV/Genital Warts N IBS (Irritable Bowel Syndrome) N History of Abnormal Pap N High Cholesterol N Liver Disease N Kidney Infection N Fibromyalgia N Ulcer N Kidney Disease N HIV N Gallbladder disease N Sickle Cell Disease/Trait N Von Willebrand disease N ADD/ADHD N Eating Disorder N Anemia N Diabetes Mellitus (non-insulin dependent ) N Multiple Sclerosis N Ovarian Problems N Gonorrhea N Frequent Urinary Tract infections N Osteopenia N Headaches/migraines N GERD (reflux) N Ovarian Cancer N Diabetes (insulin dependent) N Seizures/Epilepsy N Breast Problems N Fibroids N Asthma N Heart Attack N Lupus N Endometrial Cancer N Rubella N Blood Clotting Disorder N Bipolar Disorder N Diabetes Mellitus (during ) N Ulcerative Colitis N Hepatitis N Heart Disease N Pulmonary Embolism N RPR N Chicken Pox N Osteoporosis N Gynecological History Statement/Question Response Flow Light Date of LMP 05/22/2024 Date of Last Pap Smear Duration of Flow (days) 7 Current Control Method IUD Age at Menarche 11 Obstetrics History GPAL:G 0 P 0 0 0 0 Past Encounters Encounter ID Performer Location Encounter Start Date Encounter Closed Date Diagnosis/Indication Diagnosis SNOMED-CT Code Diagnosis ICD10 Code Diagnosis Note [id number] Sandra Luong CNM [facility] [address] [place] [address] 11/05/2024 13:33:36 11/05/2024 14:18:37 Venereal disease screening 469993461 Z11.3 Pt reports increased vaginal discharge, odor, and mild cramping. Has IUD in place. Was recently treated for BV and PID.Boric acid to control odor.F/u as needed. Urinary symptoms 0279445 08 R39.9 Inconclusi ve Udip. Pt reports mild cramping and some frequency. Will send culture.F/ u as needed Health Concerns Section Related Observation LastModified by Organization Detai ls LastModified Time None Recorded Concern Status LastModified by Organization Details LastModified Time None Recorded Advance Directives Directive None Recorded Payers Insurance Date Sequence Insurance Name Policy Number Policy Briseno Covered Member ID Briseno Member ID Guarantor Name 11/05/2024 1 [facility] [id number] Sung Palafox [id number] Erika Palafox Notes Date Note Type Note Provider Name and Address Organization Details Recorded Time 11/05/2024 text/html Erika is here for vaginal problemspatient c/o cramping, urgency and brown water discharge after sexpatient c/o metallic odor from the vaginal area as wellpatient currently control is IUD Sandra Luong CNM [address] [facility], [place], [address], [place] [facility] 11/05/2024 14:18:29 OBGyn Episode No OBEpisode recorded.
--- OUTSIDE RECORDS SUMMARY | 2025-01-25 02:16 | XMS_ITS | Continuity of Care Document ---
Author Organization [facility] Address [address] [place] [address] Phone Care Team Providers Care Box Maker Name Role Phone Kleber Del Rio MD [...] OFFICE/OUTPAT IENT VISIT EST [facility] , [address], [place], [address], [place] tel:[phone] [facility] Unspecified dislocation of left patella, subsequent encounter 9 Eliane Shahid. [address], [place], [place], [address]. tel:[phone] OFFICE/OUTPAT IENT VISIT EST [facility] , [address], [place], [address], [place] tel:[phone] [facility] Unspecified dislocation of left patella, subsequent encounter 9 Eliane Shahid. [address], [place], [place], [address]. tel:[phone] OFFICE/OUTPAT IENT VISIT EST [facility] , [address] [address], [place], [address], [place] tel:[phone] [facility] Unspecified dislocation of left patella, subsequent encounter 9 Eliane Shahid. [address], [place], [place], [address]. tel:[phone] [facility] , [address] [facility] [address], [place], [address], [place] tel:[phone] [facility] Unspecified dislocation of left patella, subsequent encounter [address], [place], [place], [address]. tel:[phone] OFFICE/OUTPAT IENT VISIT EST [facility] , [address] [address], [place], [address], [place] tel:[phone] [facility] Dislocation of left patella, initial encounter 8 Eliane Shahid. [address], [place], [place], [address]. tel:[phone] OFFICE/OUTPAT IENT VISIT NEW [facility] , [address] [facility] [address], [place], [address], [place] tel:[phone] [facility] Coccydynia 8 Racheal Shahid. [address] [facility], [place], [place], [address]. tel:[phone] Referring Provider: Higinio Lin [address], [place], [address]. tel:[phone] Family History Family Member Type Diagnosis Age At Onset Sister Problem (finding) attention deficit hyper activity disorder Father Problem (finding) hypertension Mother Problem (finding) hypertension Brother Problem (finding) attention deficit hyper activity disorder Mother Problem (finding) Heart Arrhythmia Payers Payer name Insurance type Covered alliance party ID Authoriza tion(s) [facility] [employer] [id number] [id number] Social History Type Description Quantity Date Captured [...]
[2025-01-25] MEDS: MAG HYDROX/AL HYDROX/SIMETH 30 ML UDC PO (02:39)
[2025-01-25] MEDS: ONDANSETRON HCL ODT 4 MG TABLET PO (02:40)
[2025-01-25] MEDS: FAMOTIDINE 20 MG TABLET PO (02:40)
--- NOTE | 2025-01-25 02:42 | ED_ITS ---
HPI - Abdominal Pain General Chief Complaint: Abdominal Pain Stated Complaint: multiple complaints Time Seen by Provider: 01/25/25 02:08 History of Present Illness HPI narrative: Patient with history of GERD, IBS, started having some pain to her left upper quadrant with some nausea, now having some discomfort to epigastric abdomen. Also noticed fatty and stools, does not feel entirely like her usual IBS symptoms. Related Data Allergies Allergy/AdvReac Type Severity Reaction Status Date / Time No Known Allergies Allergy Verified 01/25/25 01:50 Review of Systems 2 Review of Systems: All systems reviewed & are unremarkable except as noted in HPI and below PMFSH Past Medical History Medical History (Updated 01/25/25 @ 03:30 by Renetta Kaye MD) History of anxiety Social History Social History (Updated 12/12/24 @ 01:18 by Sari Mares PA-C) Smoking status: Current some day smoker Tobacco type: e-cigarettes/vaping Exam 2 Narrative: EXAMINATION OF ORGAN SYSTEMS/BODY AREAS: Constitutional: Vital signs per nursing GENERAL:[No acute distress, non-toxic appearing.] HEAD: Normal with no signs of head trauma. EYES: EOMI, conjunctiva normal ENT: Hearing grossly intact LUNGS: Nonlabored breathing. HEART: [Regular rate and rhythm] ABD: [Soft], very minimal discomfort to epigastric abdomen EXT: Normal range of motion SKIN: [No rashes or lesions.] NEURO: [Alert and oriented x 3. No gross focal sensory or strength deficits.] PSYCH: Normal affect Course Vital Signs Vital signs: Vital Signs Temperature 98.1 F 01/25/25 01:47 Pulse Rate 78 01/25/25 01:47 Respiratory Rate 18 01/25/25 01:47 Blood Pressure 134/86 01/25/25 01:47 Pulse Oximetry 100 01/25/25 01:47 Oxygen Delivery Room Air 01/25/25 01:47 Temperature 98.1 F 01/25/25 01:47 Pulse Rate 78 01/25/25 01:47 Respiratory Rate 18 01/25/25 01:47 Blood Pressure 134/86 01/25/25 01:47 Pulse Oximetry 100 01/25/25 01:47 Oxygen Delivery Room Air 01/25/25 01:47 MDM - Abdominal Pain MDM Narrative Medical decision making narrative: Electronic medical record was reviewed. Patient presented to the ED with complaint of [abdominal pain and vomiting]. Vitals [were within acceptable limits]. Physical exam revealed soft abdomen without significant tenderness to palpation other than a little bit to the epigastric abdomen. Based on the patient's history and physical exam, my differential includes but is not limited to [gastritis, gastroenteritis, cholecystitis, pancreatitis]. [IV access was established by nursing staff. Patient was given zofran, Maalox, Pepcid]. CBC, BMP, lipase, LFTs, bilirubin and alk phos were obtained. Labs were pertinent for essentially normal labs, other than UTI. On reevaluation, the patient states that they are feeling fine. There were no witnessed episodes of vomiting in the emergency department. They are not complaining of any new abdominal pain. Repeat examination did not show any significant guarding or rebound. No new tenderness. At this time I do not feel there is any further emergent treatment to be provided. The patient was given strict return precautions, if they are to develop any worsening abdominal pain, vomiting, or blood in the vomit they are to return to the emergency department immediately. Patient verbally acknowledges understanding these directions. [The patient was informed of the above diagnostic test findings.] No further workup is necessary at this time. They will be discharged home [with prescriptions]. They were advised to follow-up with [their PCP] in 2 days. The patient feels that this is appropriate medical decision making and verbalizes an understanding of the discharge instructions. DISPOSITION: [Home] Lab Data 01/25/25 02:48 01/25/25 02:48 Labs: Lab Results 01/25/25 01/25/25 Range/Units 02:48 02:52 WBC 8.8 (4.5-10.0) K/mm3 RBC 4.92 (4.2-5.4) M/mm3 Hgb 14.3 (12.0-15.0) g/dL Hct 43.0 (37.0-47.0) % MCV 87.4 (80-100) fl MCH 29.1 (26-34) pg MCHC 33.3 (32-36) g/dl RDW 12.7 (11.5-14.5) % Plt Count 391 H (150-375) k/mm3 MPV 8.8 (7.4-10.4) fl Immature Gran % (Auto) 0.2 (0-0.5) % Neut % (Auto) 59.5 (45.5-73.1) % Lymph % (Auto) 28.1 (18.3-44.2) % Thomas % (Auto) 10.1 H (2.6-8.5) % Eos % (Auto) 1.8 (0-4.4) % Baso % (Auto) 0.3 (0.2-1.2) % Lymph # (Auto) 2.48 (0.9-3.2) K/mm3 Thomas # (Auto) 0.9 H (0.1-0.6) K/mm3 Eos # (Auto) 0.2 (0-0.3) K/mm3 Baso # (Auto) 0.0 (0.0-0.1) K/mm3 Abs Immat Gran (auto) 0.02 (0.00-0.031) K/mm3 Absolute Neuts (auto) 5.3 (1.3-6.7) K/mm3 Absolute Nucleated RBC 0.000 (0.0-0.012) K/mm3 Nucleated RBC % 0.0 (0.0-0.2) % Sodium 139 (137-145) mmol/L Potassium 3.9 (3.4-5.0) mmol/L Chloride 105 (98-107) mmol/L Carbon Dioxide 24 (22-30) mmol/L Anion Gap 10 (4-12) mmol/L BUN 8 (7-17) mg/dL Creatinine 0.70 (0.7-1.0) mg/dL Estim Creat Clear Calc 116 ml/min Estimated GFR > 60 (59 - ) Glucose 90 (65-110) mg/dL Calcium 9.5 (8.4-10.2) mg/dL Total Bilirubin 0.4 (0.2-1.3) mg/dL AST 22 (14-36) U/L ALT 16 (6-35) U/L Alkaline Phosphatase 70 (38-126) U/L Total Protein 7.9 (6.3-8.2) g/dL Albumin 4.7 (3.5-5.1) g/dL Lipase 84 (23-300) U/L Urine Color Yellow (Yellow) Urine Appearance Clear (Clear) Urine pH 7.0 (5.0-9.0) Ur Specific [place] 1.028 (1.001-1.035) Urine Protein Trace (Negative) mg/dL Urine Glucose (UA) Negative (Negative) mg/dL Urine Ketones Trace H (Negative) mg/dL Ur Blood (Man) Negative (Negative) Urine Nitrate Negative (Negative) Urine Bilirubin Negative (Negative) Urine Urobilinogen 1.0 (<2.0) mg/dL Add Ur Microanalysis Reviewed Leukocyte Esterase Rfl 1+ H (Negative) CHARLY/UL Urine RBC 0-2 (0-2) /hpf Urine WBC 11-20 H (0-3) /hpf Ur Squamous Epith Cells Few (Few) /hpf Urine Bacteria 1+ H /hpf Urine Casts 0-2 Urine Mucus Present /lpf POC Urine HCG, Qual Negative (Negative) Discharge Plan Discharge Clinical Impression: UTI (urinary tract infection) Patient Disposition: Home Condition: Stable Instructions: Urinary Tract Infection in Women (ED), Acute Nausea and Vomiting (ED), Abdominal Pain (ED) Additional Instructions: Please follow up with your doctor; you can always return for any further issues. Please take the medications as prescribed. Patient Language: Hungarian Prescriptions: New nitrofurantoin monohyd/m-cryst [Macrobid] 100 mg capsule 100 mg PO Q12H 5 Days Qty: 10 0RF Rx Instructions: must administer with a meal/food ondansetron 4 mg tablet,disintegrating 4 mg PO Q8H PRN (Reason: nausea and vomiting) Qty: 10 0RF Follow-up/Referrals: PHYSICIAN NOT ON STAFF,NONSTAFF [Primary Care Provider] -
[2025-01-25 02:54] LABS: BEDSIDEPREGUCG Negative (Negative)
[2025-01-25 02:55] LABS: Basophils Percent Auto 0.3 % (0.2-1.2); Eosinophils Absolute Auto 0.2 K/mm3 (0-0.3); Eosinophils Percent Auto 1.8 % (0-4.4); Hemoglobin 14.3 g/dL (12.0-15.0); Immature Granulocyte Absolute 0.02 K/mm3 (0.00-0.031); Immature Granulocyte Percent A 0.2 % (0-0.5); Lymphocytes Absolute Auto 2.48 K/mm3 (0.9-3.2); Lymphocytes Percent Auto 28.1 % (18.3-44.2); Mean Corpuscular HGB Conc 33.3 g/dl (32-36); Mean Corpuscular Hemoglobin 29.1 pg (26-34); Mean Corpuscular Volume 87.4 fl (80-100); Mean Platelet Volume 8.8 fl (7.4-10.4); Monocytes Absolute Auto 0.9 K/mm3 (0.1-0.6); Monocytes Percent Auto 10.1 % (2.6-8.5); Neutrophils Absolute Auto 5.3 K/mm3 (1.3-6.7); Neutrophils Percent Auto 59.5 % (45.5-73.1); Platelet Count Result 391 k/mm3 (150-375); Red Blood Count 4.92 M/mm3 (4.2-5.4); Red Cell Distribution Width 12.7 % (11.5-14.5); White Blood Count 8.8 K/mm3 (4.5-10.0)
[2025-01-25 03:08] LABS: Alanine Aminotransferase 16 U/L (6-35); Albumin Level 4.7 g/dL (3.5-5.1); Alkaline Phosphatase 70 U/L (38-126); Anion Gap 10 mmol/L (4-12); Aspartate Amino Transferase 22 U/L (14-36); Bilirubin,Total 0.4 mg/dL (0.2-1.3); Blood Urea Nitrogen 8 mg/dL (7-17); Calcium 9.5 mg/dL (8.4-10.2); Carbon Dioxide 24 mmol/L (22-30); Chloride 105 mmol/L (98-107); Estimated CRCL calculation 116 ml/min; Estimated Glomerular Filt Rate > 60; Glucose 90 mg/dL (65-110); Lipase 84 U/L (23-300); Potassium 3.9 mmol/L (3.4-5.0); Sodium 139 mmol/L (137-145); Total Protein 7.9 g/dL (6.3-8.2)
[2025-01-25 03:16] LABS: Add Urine Microscopic? YES; Appearance Urine Clear (Clear); Bacteria Urine 1+ /hpf; Bilirubin Urine Negative (Negative); Blood Urine Negative (Negative); Color Urine Yellow (Yellow); Glucose Urine UA Negative (Negative); Ketones Urine Trace mg/dL (Negative); Leukocyte Esterase Ur 1+ LEU/UL (Negative); Mucus Urine Present /lpf; Need Manual Microscopic Reviewed; Nitrate Urine Negative (Negative); Non Pathogenic Casts 0-2; Protein Urine Trace mg/dL (Negative); RBC Urine 0-2 /hpf (0-2); Specific Grav Ur 1.028 (1.001-1.035); Squamous Epithelial Cell Urine Few /hpf (Few)
[2025-01-25 03:42] VITALS: BP 122/76; PULSE 70; RESP 15; O2SAT 100
== END 2025-01-25 03:43 | disposition home or self-care (01) ==
PROVIDERS: Emergency Provider Emergency Medicine
DX: N39.0 Urinary tract infection, site not specified (principal); K58.9 Irritable bowel syndrome, unspecified; K21.9 Gastro-esophageal reflux disease without esophagitis; F17.290 Nicotine dependence, other tobacco product, uncomplicated
CPT/HCPCS: 36415; 80053; 81001; 81025; 83690; 85025; 87086; 99283; A9270